=== PATIENT | female | born 1960 | race Caucasian/White ===

== ENCOUNTER 2024-05-19 21:21 | Emergency (ER) | payer MEDICARE, SELFPAY ==
[2024-05-19 21:24] VITALS: BP 117/72; PULSE 73; RESP 18; TEMP 36.7; O2SAT 100; BMI 18.2
--- NOTE | 2024-05-19 21:47 | ED.GENADULT ---
HPI - General Adult General Time Seen by Provider: 21:47 <Fide Thacker MD - Last Filed: 05/19/24 23:23> Date Seen: 05/19/24 <Fide Thacker MD - Last Filed: 05/19/24 23:23> Chief complaint: Unspecified Complaint, Adult <Fide Thacker MD - Last Filed: 05/19/24 23:23> Stated complaint: blood in urine <Fide Thacker MD - Last Filed: 05/19/24 23:23> Time Seen by Provider: 05/19/24 21:46 <Fide Thacker MD - Last Filed: 05/19/24 23:23> Source: patient and RN notes reviewed <Fide Thacker MD - Last Filed: 05/19/24 23:23> Mode of arrival: ambulatory <Fide Thacker MD - Last Filed: 05/19/24 23:23> Limitations: no limitations <Fide Thacker MD - Last Filed: 05/19/24 23:23> History of Present Illness HPI narrative: This 63-year-old female is coming into the ER with concern of blood in her urine, passing clots. When she got up this morning and went to the bathroom, felt dysuria. As the day is when on her urine has become bloody. Now she states his just blood in passing clots. She did go online and was given a prescription for Pyridium and nitrofurantoin. She has taken 1 dose of the nitrofurantoin. She maybe felt warm earlier but did not take her temperature, has had some chills. She baseline has back pain, needs more back surgery and already has had fusions in her back. She sees a us marketing director for constipation and chronic abdominal pain. She believes she had a CT maybe as close to 5-6 weeks ago, possibly little longer than that. She has had urinary tract infections in the past. <Fide Thacker MD - Last Filed: 05/19/24 23:23> Related Data Home medications: Home Medications ?Medication ?Instructions ?Recorded ?Confirmed alendronate 70 mg tablet 70 mg PO QWEEK 05/19/24 05/19/24 bupropion HCl 150 mg 24 hr tablet, 150 mg PO DAILY 05/19/24 05/19/24 extended release buspirone 15 mg tablet 15 mg PO BID 05/19/24 05/19/24 citalopram 20 mg tablet 20 mg PO DAILY 05/19/24 05/19/24 gabapentin 100 mg capsule 100 mg PO DAILY 05/19/24 05/19/24 gabapentin 300 mg capsule 300 mg PO QHS 05/19/24 05/19/24 hydroxyzine HCl 25 mg tablet 25 mg PO TID PRN 05/19/24 05/19/24 omeprazole 40 mg capsule,delayed 40 mg PO DAILY 05/19/24 05/19/24 release ubrogepant 50 mg tablet (Ubrelvy) mg 05/19/24 zonisamide 100 mg capsule 100 mg PO DAILY 05/19/24 05/19/24 zonisamide 25 mg capsule 25 mg PO DAILY 05/19/24 05/19/24 <Fide Thacker MD - Last Filed: 05/19/24 23:23> Allergies/adverse reactions: Allergies Allergy/AdvReac Type Severity Reaction Status Date / Time Penicillins Allergy Intermediate Verified 05/19/24 23:53 Sulfa (Sulfonamide Allergy Mild Gastrointestinal Verified 05/19/24 23:53 Antibiotics) Upset sulfamethoxazole Allergy Mild Gastrointestinal Verified 05/19/24 23:53 [From Bactrim] Upset trimethoprim [From Bactrim] Allergy Mild Gastrointestinal Verified 05/19/24 23:53 Upset <Fide Thacker MD - Last Filed: 05/19/24 23:23> Review of Systems Narrative: As per HPI. <Fide Thacker MD - Last Filed: 05/19/24 23:23> PFSH PFSH Social History: Social History Smoking Status: Never smoker Do you use any of these nicotine containing products: None Second hand tobacco smoke exposure: No How often do you have a drink containing alcohol: never How often do you have six or more drinks on one occasion: Never AUDIT-C Alcohol total score: 0 Non-prescribed substance use: denies use service: No <Fide Thacker MD - Last Filed: 05/19/24 23:23> Exam Const: Vital Signs, click to edit/add: Vital Signs - 24 hr 05/19/24 21:24 Temperature 98.0 F Pulse Rate [Right Pulse Oximeter] 73 Respiratory Rate 18 Blood Pressure [Ri ght Upper Arm] 117/72 Pulse Oximetry 100 Oxygen Delivery Me thod Room Air This 63-year-old female is ambulatory into the ED of her own accord, is sitting on the bed, is of slender frame. Sclera clear come conjugate gaze, symmetrical facial function. It will speak in complete sentences. Lungs are clear, good air entry, no wheezing or crackles. CV regular rate and rhythm, no murmur, normal S1-S2, no S3-S4. She has chronic rib pain from her back, CVA tenderness is not increased on examination. Abdomen is soft, nondistended, nontender, no masses no rebound or guarding. <Fide Thacker MD - Last Filed: 05/19/24 23:23> Vital Signs, click to edit/add: Vital Signs - 24 hr 05/19/24 21:24 Temperature 98.0 F Pulse Rate [Right Pulse Oximeter] 73 Respiratory Rate 18 Blood Pressure [Ri ght Upper Arm] 117/72 Pulse Oximetry 100 Oxygen Delivery Me thod Room Air <Raz Chong DO - Last Filed: 05/20/24 00:31> Documenting provider has reviewed patient's vital signs: yes <Fide Thacker MD - Last Filed: 05/19/24 23:23> Course Course ED Course: Did see her urine specimen and definitely looks to be significant gross hematuria. Will await urinalysis. Have reviewed with her if it looks just to be hematuria, may recommend CT imaging. Did review with her and her that there are bacteria that cause hemorrhagic cystitis or urinary tract infections. It is not uncommon that we can see catina hematuria with infections. <Fide Thacker MD - Last Filed: 05/19/24 23:23> Reevaluation(s) Time of Reevaluation #1: 22:24 <Fide Thacker MD - Last Filed: 05/19/24 23:23> Reevaluation #1: Reviewed with patient that her urinary specimen was essentially catina blood per lab. Thus, we are going to proceed with CT imaging just to ensure that we are not missing a lesion in the urinary system. Patient will have an IV placed, we will check some basic labs as well. She agrees to proceed to have the CT imaging done. Likely will give her IV antibiotics but we will wait to see our labs and CT report. <Fide Thacker MD - Last Filed: 05/19/24 23:23> Time of Reevaluation #2: 23:22 <Fide Thacker MD - Last Filed: 05/19/24 23:23> Reevaluation #2: Patient requesting pain meds. Did order Toradol. Awaiting her chemistry use for the creatinine for this CT to be done. Her white blood count is normal. <Fide Thacker MD - Last Filed: 05/19/24 23:23> Vital Signs Vital signs: Initial Vital Signs Temperature 98.0 F 05/19/24 21:24 Temperature Source Temporal Artery Scan 05/19/24 21:24 Pulse Rate 73 05/19/24 21:24 Pulse Rhythm Regular 05/19/24 21:24 Pulse Strength 3+ Normal 05/19/24 21:24 Respiratory Rate 18 05/19/24 21:24 Blood Pressure 117/72 05/19/24 21:24 Blood Pressure Mean 87 05/19/24 21:24 Blood Pressure Position Sitting 05/19/24 21:24 Pulse Oximetry 100 05/19/24 21:24 Oxygen Delivery Method Room Air 05/19/24 21:24 Vital Signs Temperature 98.0 F 05/19/24 21:24 Pulse Rate 73 05/19/24 21:24 Respiratory Rate 18 05/19/24 21:24 Blood Pressure 117/72 05/19/24 21:24 Pulse Oximetry 100 05/19/24 21:24 Oxygen Delivery Method Room Air 05/19/24 21:24 Temperature 98.0 F 05/19/24 21:24 Pulse Rate 73 05/19/24 21:24 Respiratory Rate 18 05/19/24 21:24 Blood Pressure 117/72 05/19/24 21:24 Pulse Oximetry 100 05/19/24 21:24 Oxygen Delivery Method Room Air 05/19/24 21:24 <Fide Thacker MD - Last Filed: 05/19/24 23:23> Initial Vital Signs Temperature 98.0 F 05/19/24 21:24 Temperature Source Temporal Artery Scan 05/19/24 21:24 Pulse Rate 73 05/19/24 21:24 Pulse Rhythm Regular 05/19/24 21:24 Pulse Strength 3+ Normal 05/19/24 21:24 Respiratory Rate 18 05/19/24 21:24 Blood Pressure 117/72 05/19/24 21:24 Blood Pressure Mean 87 05/19/24 21:24 Blood Pressure Position Sitting 05/19/24 21:24 Pulse Oximetry 100 05/19/24 21:24 Oxygen Delivery Method Room Air 05/19/24 21:24 Vital Signs Temperature 98.0 F 05/19/24 21:24 Pulse Rate 73 05/19/24 21:24 Respiratory Rate 18 05/19/24 21:24 Blood Pressure 117/72 05/19/24 21:24 Pulse Oximetry 100 05/19/24 21:24 Oxygen Delivery Method Room Air 05/19/24 21:24 Temperature 98.0 F 05/19/24 21:24 Pulse Rate 73 05/19/24 21:24 Respiratory Rate 18 05/19/24 21:24 Blood Pressure 117/72 05/19/24 21:24 Pulse Oximetry 100 05/19/24 21:24 Oxygen Delivery Method Room Air 05/19/24 21:24 <Raz Chong DO - Last Filed: 05/20/24 00:31> Medications Administered Medications: Discontinued Medications Generic Name Dose Route Start Last Admin Trade Name Freq PRN Reason Stop Dose Admin Ketorolac Tromethamine 15 mg 05/19/24 23:21 05/19/24 23:28 Ketorolac 15 Mg/Ml Inj IVP 05/19/24 23:22 15 mg ONCE ONE Administration <Fide Thacker MD - Last Filed: 05/19/24 23:23> Discontinued Medications Generic Name Dose Route Start Last Admin Trade Name Freq PRN Reason Stop Dose Admin Ketorolac Tromethamine 15 mg 05/19/24 23:21 05/19/24 23:28 Ketorolac 15 Mg/Ml Inj IVP 05/19/24 23:22 15 mg ONCE ONE Administration <Raz Chong DO - Last Filed: 05/20/24 00:31> Medical Decision Making MDM Narrative Medical decision making narrative: Patient is a 63-year-old female signed out to me pending CT scan results. CT returned showed marked bladder wall thickening. Is consistent with cystitis. The cannot correlate with urinalysis due to the amount of bleeding. It is I am seem to the bleeding is most likely from the cystitis. Will switch her to Keflex. This was prescribed through [facility] along with Toradol. She was given a dose of morphine before discharge. She is agreeable to this plan. <Raz Chong DO - Last Filed: 05/20/24 00:31> Lab Data Labs: Lab Results 05/19/24 05/19/24 Range/Units 09:53 22:47 WBC 10.04 (4.50-11.00) K/uL RBC 4.30 (4.00-5.20) m/uL Hgb 13.3 (12.0-16.0) gm/dL Hct 40.8 (33.0-51.0) % MCV 95 (80-100) fL MCH 31 (26-34) pg MCHC 33 (32-36) gm/dL RDW Coeff of Black 12.4 (11.5-15.5) % Plt Count 273 (140-440) K/uL Neut % (Auto) 78.6 H (42.0-72.0) % Lymph % (Auto) 14.2 L (20-44) % [place] % (Auto) 5.4 (0.0-11.0) % Eos % (Auto) 1.3 (0.0-7.0) % Baso % (Auto) 0.5 (0.0-3.0) % Neut # (Auto) 7.90 H (1.7-7.0) K/uL Lymph # (Auto) 1.40 (0.90-2.90) K/uL [place] # (Auto) 0.50 (0.00-0.90) K/UL Eos # (Auto) 0.13 (0.00-0.50) K/uL Baso # (Auto) 0.05 (0.00-0.30) K/uL Abs Immat Gran (auto) 0.00 (0.00-0.30) K/uL Imm/Tot Granulo (auto) 0.0 % Sodium 139 (135-149) mmol/L Potassium 3.5 L (3.6-5.1) mmol/L Chloride 107 (96-114) mmol/L Carbon Dioxide 26 (20-32) mmol/L Anion Gap 6 L (7-15) mEq/L BUN 13 (7-30) mg/dL Creatinine 0.6 (0.5-1.5) mg/dL Estimated Creat Clear 34.64 Estimated GFR 101 ml/min Glucose 97 (60-115) mg/dL Calcium 9.4 (8.4-10.6) mg/dL C-Reactive Protein 0.6 (0.5-1.0) mg/dL Urine Color Cancelled Urine Appearance Cancelled Urine pH Cancelled Ur Specific Robert [place] Cancelled Urine Protein Cancelled Urine Glucose (UA) Cancelled Urine Ketones Cancelled Urine Blood Cancelled Urine Nitrite Cancelled Urine Bilirubin Cancelled Urine Urobilinogen Cancelled Ur Leukocyte Esterase Cancelled Urine RBC Cancelled Urine WBC Cancelled Urine WBC Clumps Cancelled Ur Squamous Epith Cells Cancelled Roots Biurate Crystals Cancelled Calcium Carbonate Cryst Cancelled Calcium Phosphate Cryst Cancelled Calcium Oxalate Crystal Cancelled Cystine Crystals Cancelled Uric Acid Crystals Cancelled Triple Phos Crystals Cancelled Sulfur Crystals Cancelled Cholesterol Crystals Cancelled Tyrosine Crystals Cancelled Hippuric Acid Crystals Cancelled Amorphous Sediment Cancelled Other Sediment Cancelled Urine Bacteria Cancelled Fatty Casts Cancelled Hyaline Casts Cancelled Fine Granular Casts Cancelled Coarse Granular Casts Cancelled Waxy Casts Cancelled RBC Casts Cancelled WBC Casts Cancelled Other Casts Cancelled Urine Starch Cancelled Urine Mucus Cancelled Urine Trichomonas Cancelled Urine Yeast Cancelled <Fide Thacker MD - Last Filed: 05/19/24 23:23> Lab Results 05/19/24 05/19/24 Range/Units 09:53 22:47 WBC 10.04 (4.50-11.00) K/uL RBC 4.30 (4.00-5.20) m/uL Hgb 13.3 (12.0-16.0) gm/dL Hct 40.8 (33.0-51.0) % MCV 95 (80-100) fL MCH 31 (26-34) pg MCHC 33 (32-36) gm/dL RDW Coeff of Black 12.4 (11.5-15.5) % Plt Count 273 (140-440) K/uL Neut % (Auto) 78.6 H (42.0-72.0) % Lymph % (Auto) 14.2 L (20-44) % [place] % (Auto) 5.4 (0.0-11.0) % Eos % (Auto) 1.3 (0.0-7.0) % Baso % (Auto) 0.5 (0.0-3.0) % Neut # (Auto) 7.90 H (1.7-7.0) K/uL Lymph # (Auto) 1.40 (0.90-2.90) K/uL [place] # (Auto) 0.50 (0.00-0.90) K/UL Eos # (Auto) 0.13 (0.00-0.50) K/uL Baso # (Auto) 0.05 (0.00-0.30) K/uL Abs Immat Gran (auto) 0.00 (0.00-0.30) K/uL Imm/Tot Granulo (auto) 0.0 % Sodium 139 (135-149) mmol/L Potassium 3.5 L (3.6-5.1) mmol/L Chloride 107 (96-114) mmol/L Carbon Dioxide 26 (20-32) mmol/L Anion Gap 6 L (7-15) mEq/L BUN 13 (7-30) mg/dL Creatinine 0.6 (0.5-1.5) mg/dL Estimated Creat Clear 34.64 Estimated GFR 101 ml/min Glucose 97 (60-115) mg/dL Calcium 9.4 (8.4-10.6) mg/dL C-Reactive Protein 0.6 (0.5-1.0) mg/dL Urine Color Cancelled Urine Appearance Cancelled Urine pH Cancelled Ur Specific Robert [place] Cancelled Urine Protein Cancelled Urine Glucose (UA) Cancelled Urine Ketones Cancelled Urine Blood Cancelled Urine Nitrite Cancelled Urine Bilirubin Cancelled Urine Urobilinogen Cancelled Ur Leukocyte Esterase Cancelled Urine RBC Cancelled Urine WBC Cancelled Urine WBC Clumps Cancelled Ur Squamous Epith Cells Cancelled Joaquim Biurate Crystals Cancelled Calcium Carbonate Cryst Cancelled Calcium Phosphate Cryst Cancelled Calcium Oxalate Crystal Cancelled Cystine Crystals Cancelled Uric Acid Crystals Cancelled Triple Phos Crystals Cancelled Sulfur Crystals Cancelled Cholesterol Crystals Cancelled Tyrosine Crystals Cancelled Hippuric Acid Crystals Cancelled Amorphous Sediment Cancelled Other Sediment Cancelled Urine Bacteria Cancelled Fatty Casts Cancelled Hyaline Casts Cancelled Fine Granular Casts Cancelled Coarse Granular Casts Cancelled Waxy Casts Cancelled RBC Casts Cancelled WBC Casts Cancelled Other Casts Cancelled Urine Starch Cancelled Urine Mucus Cancelled Urine Trichomonas Cancelled Urine Yeast Cancelled <Raz Chong DO - Last Filed: 05/20/24 00:31> Imaging Data CT scan - abdomen: Attestation: I have reviewed the pertinent imaging results. <Raz Chong DO - Last Filed: 05/20/24 00:31> Radiologist's impression: Marked urinary bladder wall thickening, concerning for cystitis. Consider correlation with urinalysis. Please note that all CT scans at this facility use dose modulation, iterative reconstruction, and/or weight-based dosing when appropriate to reduce radiation dose to as low as reasonably achievable. Dictated by Les Hill MD @ 05/20/2024 12:14:39 AM <Raz Chong DO - Last Filed: 05/20/24 00:31> Discharge Plan Discharge Clinical Impression: UTI (urinary tract infection) Qualifiers: Urinary tract infection type: acute cystitis Hematuria presence: with hematuria Qualified Code(s): N30.01 - Acute cystitis with hematuria <Fide Thacker MD - Last Filed: 05/19/24 23:23> Patient Disposition: Home, Self-Care <Fide Thacker MD - Last Filed: 05/19/24 23:23> Condition: Improved <Fide Thacker MD - Last Filed: 05/19/24 23:23> Instructions: Urinary Tract Infection in Women (DC), Hematuria (ED) <Fide Thacker MD - Last Filed: 05/19/24 23:23> Additional Instructions: Stop taking the nitrofurantoin instead start taking the Keflex. He can continue to take Pyridium. Use Toradol as needed for pain. Do not take other NSAIDs while your taking Toradol. You can take Tylenol. <Fide Thacker MD - Last Filed: 05/19/24 23:23> Prescriptions: No Action buspirone 15 mg tablet 15 mg PO BID omeprazole 40 mg capsule,delayed release(DR/EC) 40 mg PO DAILY citalopram 20 mg tablet 20 mg PO DAILY bupropion HCl 150 mg tablet extended release 24 hr 150 mg PO DAILY gabapentin 100 mg capsule 100 mg PO DAILY gabapentin 300 mg capsule 300 mg PO QHS zonisamide 100 mg capsule 100 mg PO DAILY zonisamide 25 mg capsule 25 mg PO DAILY alendronate 70 mg tablet 70 mg PO QWEEK hydroxyzine HCl 25 mg tablet 25 mg PO TID PRN Ubrelvy 50 mg tablet <Fide Thacker MD - Last Filed: 05/19/24 23:23> Follow Up/Referrals: Provider,Not a Local [Primary Care Provider] - <Fide Thacker MD - Last Filed: 05/19/24 23:23> Stand Alone Forms: MyHealth Info Instructions <Fide Thacker MD - Last Filed: 05/19/24 23:23>
--- NOTE | 2024-05-19 22:25 | CRLHL7_ITS ---
For Patients: As a result of the Century Cures Act, medical imaging exams and procedure reports are released immediately into your electronic medical record. You may view this report before your referring provider. If you have questions, please contact your health care provider. INDICATION: SIGNIFICANT GROSS HEMATURIA, PASSING CLOTS, X1 DAY. TECHNIQUE: CT abdomen and pelvis acquired with 100 cc Omnipaque 350 IV contrast. COMPARISON: None. FINDINGS: Lower chest: Unremarkable. Liver: Unremarkable. Normal in size and attenuation. No suspicious masses. Gallbladder and bile ducts: Cholecystectomy. No stones or inflammation. No biliary dilatation. Pancreas: Unremarkable. No mass or inflammation. Spleen: Unremarkable. Normal in size. No masses. Adrenal glands: Unremarkable. No nodules. Kidneys: Subcentimeter renal cortical hypodensities are too small to characterize, but likely reflect cysts. No suspicious masses, stones, or hydronephrosis. GI tract: Redundant transverse colon. A portion of the large bowel is interposed between the anterior abdominal wall and the liver, which is nonspecific, but can be seen in the setting of Chilaiditi syndrome. No bowel obstruction. No sign of mass or inflammation. Normal appendix. Vasculature: Abdominal aorta is normal in caliber. Mesenteric arteries are patent. Lymph nodes: No lymphadenopathy. Peritoneum/Abdominal Wall: Unremarkable. No sign of mass or infiltration. No free air or significant free fluid. Pelvis: Marked diffuse urinary bladder wall thickening. No evident intraluminal clots. Bones: Diffuse osseous demineralization. L1-S1 ALIFs. Hardware appears intact without evident complication. Extent IMPRESSION: Marked urinary bladder wall thickening, concerning for cystitis. Consider correlation with urinalysis. Please note that all CT scans at this facility use dose modulation, iterative reconstruction, and/or weight-based dosing when appropriate to reduce radiation dose to as low as reasonably achievable. Dictated by Les Hill MD @ 05/20/2024 12:14:39 AM (Electronically Signed)
[2024-05-19 23:03] LABS: Basophils Absolute Auto 0.05 K/uL (0.00-0.30); Basophils Percent Auto 0.5 % (0.0-3.0); Eosinophils Absolute Auto 0.13 K/uL (0.00-0.50); Eosinophils Percent Auto 1.3 % (0.0-7.0); Hematocrit 40.8 % (33.0-51.0); Hemoglobin* 13.3 gm/dL (12.0-16.0); Lymphocytes Percent Auto 14.2 % (20-44); Mean Corpuscular HGB Conc 33 gm/dL (32-36); Mean Corpuscular Hemoglobin 31 pg (26-34); Mean Corpuscular Volume 95 fL (80-100); Monocytes Percent Auto 5.4 % (0.0-11.0); Neutrophils Percent Auto 78.6 % (42.0-72.0); Platelet Count* 273 K/uL (140-440); RDW Coefficient of Variation % 12.4 % (11.5-15.5); White Blood Count* 10.04 K/uL (4.50-11.00)
[2024-05-19 23:08] LABS: Slide Review Reflex No
[2024-05-19 23:15] LABS: Chloride* 107 mmol/L (96-114); Potassium* 3.5 mmol/L (3.6-5.1); Sodium* 139 mmol/L (135-149)
[2024-05-19 23:18] LABS: Creatinine* 0.6 mg/dL (0.5-1.5); Est. Creatinine Clearance* 34.64; Estimated Glomerular Filt Rate 101 ml/min
[2024-05-19 23:19] LABS: Anion Gap 6 mEq/L (7-15); Blood Urea Nitrogen* 13 mg/dL (7-30); Calcium* 9.4 mg/dL (8.4-10.6); Carbon Dioxide* 26 mmol/L (20-32); Glucose* 97 mg/dL (60-115)
[2024-05-19 23:22] LABS: C Reactive Protein* 0.6 mg/dL (0.5-1.0)
[2024-05-19] MEDS: KETOROLAC 15 MG/ML inj IVP (23:28)
[2024-05-20] MEDS: MORPHINE 4 MG/ML INJ IVP (00:45)
== END 2024-05-20 00:47 | disposition home or self-care (01) ==
PROVIDERS: Emergency Provider Family Medicine
DX: N39.0 Urinary tract infection, site not specified (principal)
CPT/HCPCS: 36415; 74177; 80048; 81001; 85025; 86140; 87086; 87186; 96374; 96375; 99283; 99284; 99285; J1885; J2270; Q9967